=== PATIENT | female | born 1970 | race African-American/Black ===

== ENCOUNTER 2021-12-27 15:24 | Emergency (ER) | payer OTHER ==
[~2021-12-27] VITALS: Ht 165.1 cm; Wt 83.9 kg
[2021-12-27] MEDS ORDERED: CRESTOR10 MG PO (15:37)
[2021-12-27] MEDS ORDERED: AMLODIPINE-OLM1 EAC3 PO (15:37)
[2021-12-27] MEDS ORDERED: CHLORTHALIDONE25 MG PO (15:38)
== END 2021-12-27 19:47 | disposition home or self-care (01) ==
LOC: ER 15:24
DX: E86.0 Dehydration (principal); Z86.79 Personal history of other diseases of the circulatory system; Z20.822 Contact with and (suspected) exposure to COVID-19